=== PATIENT | female | born 1980 | race Caucasian/White ===

== ENCOUNTER 2016-12-26 23:39 | Inpatient (IN) ==
[~2016-12-26 23:39] MED LIST: Famotidine 20 MG/2 ML VIAL IVP PRN; Metoclopramide 10 MG/2 ML VIAL IVP PRN; Naloxone 0.4 MG/ML INJ IVP PRN; Ondansetron 4 MG/2 ML VIAL IVP PRN
[2016-12-26] MEDS ORDERED: Ringers Solution, Lactated 1,000 ML ONE (23:42)
[2016-12-26] MEDS ORDERED: Ringers Solution, Lactated 1,000 ML IVC SCH (23:45)
[2016-12-26] MEDS ORDERED: Lidocaine 1% 20 ML MDV ONE (23:50)
[2016-12-26] MEDS ORDERED: Oxytocin 20 units/ LR 1000 mL 20 UNIT/1,000 ML BAG IVC ONE (23:51)
[2016-12-26 23:52] LABS: Immature Granulocytes % 1.6 % (0-4); Immature Platelets 2.7 % (1.1-6.1); Lymphocytes % 12.2 %; Mean Corpuscular HGB Conc 32.3 g/dL (31.6-35.5); Mean Corpuscular Hemoglobin 27.4 pg (28.0-33.3); Mean Corpuscular Volume 84.9 fL (83.0-100.0); Mean Platelet Volume 9.2 fL (9.4-12.4); Monocytes % 6.4 %; Platelet Count 308 K/mcL (140-400); Red Blood Count 3.65 M/mcL (3.82-4.97); Red Cell Distribution Width 17.8 % (11.5-14.5); Segmented Neutrophils % 78.3 %
[2016-12-26 23:53] LABS: Basophils % 0.3 %; Eosinophils # 0.2 K/mcL (0.0-0.6); Eosinophils % 1.2 %; Lymphocytes # 1.6 K/mcL (0.6-4.6); Monocytes # 0.8 K/mcL (0.0-1.3); Neutrophils # 10.1 K/mcL (1.6-8.9); Nucleated Red Blood Cells 0.2 /100 WBC (0)
[2016-12-26 23:59] LABS: Amphetamine Screen,Urine Negative ng/mL (Cutoff=1000); Barbiturate Screen,Urine Negative ng/mL (Cutoff=200); Benzodiazepines Screen,Urine Negative ng/mL (Cutoff=200); Cannabinoid Screen,Urine Negative ng/mL (Cutoff = 50); Cocaine Screen,Urine Negative ng/mL (Cutoff= 300); Opiate Screen,Urine Negative ng/mL (Cutoff=300); Phencyclidine Screen,Urine Negative ng/mL (Cutoff=25)
--- NOTE | 2016-12-27 00:20 | OB/GYN History & Physical ---
Date of Encounter: 12/26/16 Time of Encounter: 23:44 Assessment and Plan (1) Advanced maternal age (AMA) in Current visit: Yes Status: Acute admitted for delivery (2) 38 weeks gestation of Current visit: Yes Status: Acute spontaneous labor and SROM (3) Rh negative status during in third trimester Current visit: Yes Status: Acute RHogam evaluation following delivery History of Present Illness Chief complaint: spontaneous labor HPI: Ms. Vazquez is a year old female @ 38w6d presents with SROM and spontaneous labor. Patient was 8cm dilated on admission. Patient reports SROM at 2130 denies any color or odor. Patient reports contractions that started shortly after. Blood type: O Negative, Rubella: Immune, Hep B: nonreactive, GBS : Negative. Past Med Surg Social Fam HX - Past Medical History Source: patient Medical history: no medical history Psychiatric history: no psych history - Past Surgical History Surgical History: other (LEEP, Cone biopsy) - Social History Smokeless Tobacco Status: No Alcohol use: none Drug use: none Occupational status: employed Current living situation: Home - Independent Activity Level: Independent ambulation Recent Out of Country Travel Within the Last 8 Weeks: No Exposure or Possible Exposure to Illness During Travel: No Obstetrical History - Pregnancies : 6 Para: 4 Term: 4 : 0 Ab's: 1 Livin Medications and Allergies Ferrous Sulfate [Iron] 325 mg PO DAILY 12/26/16 [History] Vit/Iron Fumarate/FA [ Tablet] 1 each PO DAILY 12/26/16 [ History] 3 Allergy/AdvReac Type Severity Reaction Status Date / Time No Known Allergies Allergy Verified 12/26/16 23:33 Review of System OB - Constitutional Constitutional ROS IM: no chills, no fever(s), no frequent falls, no headache(s) - Cardiovascular Cardiovascular: no chest pain, no edema, no palpitations, no rapid heart rate, no syncope - Respiratory Respiratory: no cough - Gastrointestinal Gastrointestinal: no abdominal pain, no constipation, no heartburn, no nausea, no vomiting - Genitourinary Genitourinary: vaginal discharge, no abnormal vaginal bleeding, no dysuria, no flank pain, no urinary frequency, no vaginal odor, no vaginal pruritis Exam - Constitutional Constitutional: well developed, well nourished, no acute distress, average body habitus - HEENT HEENT: Normocephaly, Mucus Membranes Moist - Neck Neck exam: full ROM, supple - Lungs Respiratory exam: CTAB - Cardiovascular Cardiovascular exam: RRR, +S1, +S2 - Abdomen Abdomen: Present: bowel sounds normal, gravid, non tender - Extremities Extremities exam: full ROM, normal capillary refill, pedal edema (1+ bilateral) Deep Tendon Reflex Grade: 2+ Normal - Cervix Dilation: 8 Effacement: 100 Station: 0 - Uterus Uterus exam: Present: normal size, normal contour (FHR 135 bpm moderate variability +15x15 early decels noted. Contractions 1-4 min apart) Results All other labs normal. - VTE Reasons for not Prescribing Prophylaxis: Treatment not Indicated - Low risk for VTE
--- NOTE | 2016-12-27 00:33 | OB/GYN Procedure Note ---
Delivery - Delivery Date: 12/26/16 Provider: Janice Atkinson Intrapartum events: precipitous labor- <3hr Delivery induction: none Delivery monitor: external FHT, external uterine Anesthesia: local Estimated Blood Loss: 150 - Infant (s) Infant A Infant Delivery Date: 12/27/16 Delivery Time: 23:49 Presentation: vertex Position: TATA Route of delivery: Gender: Female Viability: Viable Pounds: 7 Ounces: 2 Weight Gram: 3.22 kg at 1 minute: 8 at 5 mins: 9 Shoulder Dystocia: not encountered Specimens collected: cord blood Placenta: spontaneous, uterine exploration Cord: 3 umbilical vessels - Repair Episiotomy: none Laceration Description: Perineal - 1st Degree (repaired with 3-0 vicryl) - Complications Delivery complications: none - Disposition Mom disposition: stable in LDR disposition: stable in LDR - Comments Comments: Called to LDR patient feeling pressure and urge to push. Patient was complete and +2 station. Patient was placed in stirrups and prepped for vaginal delivery. Under maternal effort patient spontaneously delivered a viable female over a 1st degree perineal laceration. No nuchal cord, shoulder dystocia or meconium was encountered. Infant was placed on maternal abdomen. Cord was clamped and cut after pulsation ceased. A first degree perineal laceration was repaired with 3-0 & 4-0 vicryl. 1% lidocaine was used to anesthetize the area of repair. The placenta delivered spontaneously and intact. All counts correct. Both mother and infant are stable in LDR for 2 hour recovery.
[2016-12-27] MEDS ORDERED: Benzocaine/Menthol 56 GM AEROSOL SPRAY TP PRN (00:49)
[2016-12-27] MEDS ORDERED: Ibuprofen 600 MG TABLET PO PRN (00:49)
[2016-12-27] MEDS ORDERED: Oxytocin 20 units/ LR 1000 mL 20 UNIT/1,000 ML BAG IVC SCH (00:49)
[2016-12-27] MEDS ORDERED: Lanolin 7 G OINT...G. TP PRN (00:49)
[2016-12-27] MEDS ORDERED: Acetaminophen 325 MG TABLET PO PRN (00:49)
[2016-12-27] MEDS ORDERED: Rho Immune Globulin 1,500 UNIT SYRINGE IM PRN (00:49)
[2016-12-27] MEDS ORDERED: *HR* HYDROcodone/Acet 5/325 mg TABLET PO PRN (00:49)
--- NOTE | 2016-12-27 08:16 | Discharge Summary ---
Date of Encounter: 12/27/16 Time of Encounter: 08:13 - Discharge Diagnosis (1) Advanced maternal age (AMA) in Priority: Secondary Status: Acute (2) 38 weeks gestation of Priority: Secondary Status: Acute (3) Rh negative status during in third trimester Priority: Secondary Status: Acute Comments: Rhogam if needed (4) Vaginal delivery Priority: Secondary Status: Acute Comments: Continue routine care discharge home today per patient request follow up in 4-6 weeks with Janice - Discharge Medications Home Medications: Vit/Iron Fumarate/FA [ Tablet] 1 each PO DAILY 12/26/16 [ History] Vit/FA 1 each PO DAILY tablet 12/27/16 [Rx] Allergies/Adverse Reactions: 3 Allergy/AdvReac Type Severity Reaction Status Date / Time No Known Allergies Allergy Verified 12/26/16 23:33 Data Procedures and tests throughout hospitalization: Laboratory Tests 12/26/16 12/26/16 23:44 23:44 WBC 12.9 H RBC 3.65 L Hgb 10.0 L Hct 31.0 L MCV 84.9 MCH 27.4 L MCHC 32.3 RDW 17.8 H Plt Count 308 MPV 9.2 L Immature Gran % 1.6 Seg Neutrophils % 78.3 Lymphocytes % 12.2 Monocytes % 6.4 Eosinophils % 1.2 Basophils % 0.3 Neutrophils # 10.1 H Lymphocytes # 1.6 Monocytes # 0.8 Eosinophils # 0.2 Basophils # 0.0 Nucleated RBCs/100 WBC 0.2 H Immature Plt Fraction 2.7 Urine Opiates Screen Negative Ur Barbiturates Screen Negative Ur Phencyclidine Scrn Negative Ur Amphetamines Screen Negative U Benzodiazepines Scrn Negative Urine Cocaine Screen Negative U Marijuana (THC) Screen Negative Labs on day of discharge: Labs from last 24 hours 12/26/16 12/26/16 23:44 23:44 WBC 12.9 H RBC 3.65 L Hgb 10.0 L Hct 31.0 L MCV 84.9 MCH 27.4 L MCHC 32.3 RDW 17.8 H Plt Count 308 MPV 9.2 L Immature Gran % 1.6 Seg Neutrophils % 78.3 Lymphocytes % 12.2 Monocytes % 6.4 Eosinophils % 1.2 Basophils % 0.3 Neutrophils # 10.1 H Lymphocytes # 1.6 Monocytes # 0.8 Eosinophils # 0.2 Basophils # 0.0 Nucleated RBCs/100 WBC 0.2 H Immature Plt Fraction 2.7 Urine Opiates Screen Negative Ur Barbiturates Screen Negative Ur Phencyclidine Scrn Negative Ur Amphetamines Screen Negative U Benzodiazepines Scrn Negative Urine Cocaine Screen Negative U Marijuana (THC) Screen Negative Date of admission: 12/26/16 23:39 Consults: 12/27/16 00:49 Consult to Physical Therapy Assistant Instructor [CONS] Routine Comment: Vaginal delivery, consult needed Discharging clinician: Janice Atkinson Anticipated date of discharge: 12/27/16 - Patient Status Disposition: Home, Self-Care Condition: Good Functional capacity at discharge: independent ambulation - Discharge Instructions Follow Up With: Janice Atkinson CNM [Non-Partnered Physician] - - Diet and Activity Activity: increase activity as tolerated Diet: regular diet Hospital Course Reason for admission: active labor, rupture of membranes Delivery: Episiotomy: none Laceration: 1st degree Other procedures: none complications: none Discharge diagnosis: IUP at term delivered [place] baby: female (bottle feeding) Time Attestation: Total time spent providing and/or coordinating discharge services: Time Spent: Less than 30 minutes Exam - Constitutional Vitals: Temp Pulse Resp BP Pulse Ox 98.3 F 84 14 87/56 97 12/27/16 04:50 12/27/16 04:50 12/27/16 04:50 12/27/16 04:50 12/27/16 04:50 General appearance IM: A&O X 3, pleasant, answers questions appropriately - Respiratory Respiratory exam: Present: CTAB - Cardiovascular Cardiovascular exam IM: Present: RRR, +S1, +S2 - GI/Abdominal GI/Abdominal exam IM: normal bowel sounds - Uterine Tone: Firm Uterus Position: 2 Fingers Below Umbilicus, Midline - Extremities Exam Extremities exam IM: Present: full ROM, normal capillary refill, normal inspection - Neurological Exam Neurological exam: alert, oriented X3, reflexes normal
[2016-12-27] MEDS ORDERED: Prenatal Vit/FA 1 EACH TABLET PO SCH (09:00)
[2016-12-27] MEDS ORDERED: FLUARIX QUAD 2017-18 36MOS UP/PF 0.5 ML SYRINGE IM ONE (10:59)
[2016-12-27 16:55] VITALS: BP 108/59
== END 2016-12-27 20:00 | disposition home or self-care (01) | DRG 775 ==
LOC: 1NENULAB → 1NENUOBS 12-27 02:38
PROVIDERS: ADMIT Advanced Practice Midwife; ATTEND Advanced Practice Midwife